=== PATIENT | male | born 1990 | race Caucasian/White ===

== ENCOUNTER 2020-04-05 19:59 | Emergency (ER) | payer OTHER ==
[~2020-04-05] VITALS: Ht 185.4 cm; Wt 78.2 kg
[2020-04-05 20:03] VITALS: BP 156/91
--- NOTE | 2020-04-05 21:45 | NUR ---
breaking primary RN; will monitor.
== END 2020-04-05 22:02 | disposition home or self-care (01) ==
LOC: ER 20:00
DX: S01.112A Laceration without foreign body of left eyelid and periocular area, initial encounter (principal); X58.XXXA Exposure to other specified factors, initial encounter; Y93.89 Activity, other specified; Y92.89 Other specified places as the place of occurrence of the external cause; Y99.8 Other external cause status
CPT/HCPCS: 12011; 99282